=== PATIENT | female | born 1965 | race Caucasian/White ===

== ENCOUNTER 2018-11-03 04:52 | Day surgery (SDC) | payer OTHER ==
[2018-11-02 13:52] VITALS: BMI 31.4
--- NOTE | 2018-11-03 09:03 | HP ---
History & Physical Update - History History: No Change - Physical Physical: No Change - Assessment Assessment: No Change - Plan Plan: No Change
--- NOTE | 2018-11-03 09:05 | OP ---
Operative Note - Note: Operative Date: 11/03/18 Pre-Operative Diagnosis: KRISTIN Operation: suburethral sling Findings: phimosis Post-Operative Diagnosis: Same as Pre-op Surgeon: Jhon Mendoza Anesthesia: General, Local Drains & Tubes with Location: [address] Operative Report Dictated: Yes
[2018-11-03] MEDS ORDERED: VASOPRESSIN 20 UNITS/ML VIAL IV ONE (09:24)
[2018-11-03] MEDS ORDERED: PROPOFOL 20 ML ONE ×3 (09:48)
[2018-11-03] MEDS ORDERED: ceFAZolin SODIUM 1 GM VIAL ONE (09:48)
[2018-11-03] MEDS ORDERED: KETOROLAC TROMETHAMINE 30 MG/1 ML VIAL ONE (09:48)
[2018-11-03] MEDS ORDERED: DEXAMETHASONE SOD PHOSPHATE 4 MG/1 ML VIAL ONE (09:48)
[2018-11-03] MEDS ORDERED: MIDAZOLAM HCL 2 MG/2 ML SINGLE DOSE VIAL ONE (09:49)
[2018-11-03] MEDS ORDERED: LIDOCAINE 1%-EPI 1:100,000 30 ML MDV IJ ONE (09:53)
[2018-11-03] MEDS ORDERED: ceFAZolin SODIUM 1 GM VIAL IVPB ONE (10:11)
[2018-11-03] MEDS ORDERED: BACITRACIN 50,000 UNITS VIAL TP ONE (10:12)
[2018-11-03] MEDS ORDERED: LIDOCAINE 1%/EPI 1:100000 (50 ML MULTI DOSE VIAL) NR ONE (10:12)
[2018-11-03] MEDS ORDERED: ONDANSETRON 4 MG/2 ML VIAL IVPUSH PRN (10:53)
[2018-11-03] MEDS ORDERED: PROMETHAZINE HCL 25 MG/1 ML VIAL IVPUSH PRN (10:53)
[2018-11-03] MEDS ORDERED: oxyCODONE HCL 5 MG TABLET PO PRN (10:53)
--- NOTE | 2018-11-03 12:18 | OP ---
DATE OF OPERATION: 11/03/2018 PREOPERATIVE DIAGNOSIS: Stress urinary incontinence. POSTOPERATIVE DIAGNOSIS: Stress urinary incontinence. PROCEDURE: Suburethral sling. SURGEON: Jhon Mera MD BOMB TECHNICIAN: None. ANESTHESIA: General. ANESTHESIOLOGIST: Isidro Rae MD SPECIMENS: None. CULTURES: None. DRAINS: 16-Bulgarian Ramirez catheter. ESTIMATED BLOOD LOSS: Negligible. COMPLICATIONS: None. DESCRIPTION OF PROCEDURE: The patient was brought into the operating room. Placed on the operating room table in supine position. After administration of general sedation via laryngeal mask, intravenous antibiotics were administered. Sequential compression devices were placed. Patient was placed in the dorsal lithotomy position. The vagina, perineum, lower abdomen, and thighs were prepped and draped in the usual sterile manner. An-Bulgarian 18 Ramirez catheter was placed per urethra, and 10 mL was placed in the balloon. The bladder was emptied. Weighted speculum was placed within the vagina. The anterior vaginal wall was infiltrated with 10 mL of lidocaine with epinephrine 1:200,000. Anterior vaginal wall midline incision was made for a distance of 2 cm overlying the midurethra while palpating the Ramirez catheter balloon at the bladder neck. The flaps were raised on each side at the level of the pubocervical fascia to the level of the descending ramus of the pubic bone on each side without breaking through the endopelvic fascia. Using a helical needle, the Altis sling was now placed through the left obturator foramen 1st and then using the other helical needle was placed through the right obturator foramen. Using the tensioning suture, the sling was tensioned allowing a right-angle clamp between the sling and the urethra. After appropriate tension was achieved, this tensioning suture was cut. The wound was irrigated with antibiotic solution. Hemostasis was assured. The wound was closed with a running 3-0 Vicryl suture. Vagina was packed with bacitracin, Betadine-soaked Kerlix. Ramirez catheter drainage was clear at the end of the procedure. She tolerated the procedure well. Transferred to recovery in stable condition. JHON MERA M.D. JOSÉ MIGUEL/[id number]
[2018-11-03] MEDS ORDERED: IBUPROFEN 600 MG TABLET (FP) PO ONE ×3 (13:30→16:03)
[2018-11-03 13:47] VITALS: BP 128/67; PULSE 59; TEMP 97.6
== END 2018-11-03 14:30 | disposition home or self-care (01) ==
LOC: JASU-SURG 04:52
PROVIDERS: ATTEND Urology
PROC: 0TSD0ZZ Reposition Urethra, Open Approach (ICD-10-PCS; principal; 2018-11-03 09:00)
DX: N39.3 Stress incontinence (female) (male) (principal)
CPT/HCPCS: 57288; C1771; 82962; 84703; 94760

== ENCOUNTER 2019-10-06 11:11 | Emergency (ER) | payer OTHER ==
[2019-10-06 11:30] VITALS: TEMP 98.6; BMI 32.5
[2019-10-06] MEDS ORDERED: SODIUM CHLORIDE 1,000 ML IV STA (11:49)
--- NOTE | 2019-10-06 11:57 | PDOC ---
History of Present Illness - History of Present Illness Initial Comments: Pt is a 54yo F with PMH HTN, DM, HLD, SLE, RA, hx of urethral sling, who presents with difficulty urinating/pelvic pain. Pt states that pain began yesterday with gradual worsening that is intermittent, currently 12/14. States that she has not urinated since at 4am, states that when she has tried to urinate since then, only a small amount comes out. Says that she has not been eating or drinking due to fear of filling her bladder. Reports regular, nonbloody bowel movements (3x Tuesday, 2x today). Reports 1 episode of nausea/vomiting yesterday. Reports a/w headache, weakness, decreased PO intake (for fear of overfilling bladder). Denies f/c, chest pain, shortness of breath. PMH: see HPI PSHx: 2 C sections, sling All: NKDA Social: denies tobacco, etoh, illicit drug use <Saray Flowers - Last Filed: 10/06/19 13:06> <Talita Adler - Last Filed: 10/06/19 15:10> - General Chief Complaint: Urinary Problem Stated Complaint: URINARY PROBLEM Time Seen by Provider: 10/06/19 11:33 Past History - Medical History Anemia: Yes Asthma: No Cancer: No Cardiac Disorders: No CVA: No COPD: No CHF: No Dementia: No Diabetes: Yes GI Disorders: No Disorders: No HTN: Yes Hypercholesterolemia: Yes Liver Disease: No Seizures: No Thyroid Disease: No - Psycho-Social/Smoking History Smoking History: Unknown if ever smoked - Substance Abuse Hx (Audit-C & DAST Scrn) How often the patient has a drink containing alcohol: Never Score: In Men: 4 or > Positive; In Women: 3 or > Positive: 0 Screen Result (Pos requires Nsg. Audit-10AR): Negative In the last yr the pt used illegal drug/Rx for NonMed reason: No Score: Yes response is considered Positive: 0 Screen Result (Positive result requires Nsg. DAST-10): Negative <Saray Flowers - Last Filed: 10/06/19 13:06> <Talita Adler - Last Filed: 10/06/19 15:10> - Medical History Allergies/Adverse Reactions: Allergies Allergy/AdvReac Type Severity Reaction Status Date / Time No Known Drug Allergies Allergy Verified 10/06/19 11:21 Home Medications: Ambulatory Orders Aspirin Coated [Ecotrin -] 81 mg PO DAILY 11/02/18 Hydrochlorothiazide [Hctz -] 25 mg PO DAILY 11/02/18 Hydroxychloroquine Sulfate [Plaquenil] 200 mg PO BID 11/02/18 Metformin HCl [Glucophage] 1,000 mg PO BID 11/02/18 Simvastatin [Zocor -] 20 mg PO HS 11/02/18 Butalb/Acetaminophen/Caffeine [Fioricet Tablet 50-325-40] 1 each PO PRN 10/06/19 Cephalexin Monohydrate [Keflex -] 500 mg PO BID 7 Days #14 capsule 10/06/19 Ferrous Sulfate 325 mg PO DAILY 10/06/19 Phenazopyridine HCl [Pyridium] 200 mg PO TID #6 tablet 10/06/19 Review of Systems - Review of Systems Comments:: CONSTITUTIONAL:reports weakness, denies fever, chills, diaphoresis, loss of appetite HEENT:denies rhinorrhea, nasal congestion, sore throat, throat swelling, difficulty swallowing, mouth swelling, ear pain, eye pain, visual Changes CARDIOVASCULAR:denies chest pain, syncope, palpitations, irregular heart rate, lightheadedness, peripheral edema RESPIRATORY:denies cough, shortness of breath, dyspnea with exertion, orth opnea, wheezing, hemoptysis GASTROINTESTINAL: denies abdominal pain, abdominal distension, nausea, vomiting, diarrhea, constipation, melena, hematochezia GENITOURINARY:denies dysuria, frequency, urgency, hesitancy, hematuria, flank pain, genital pain MUSCULOSKELETAL:denies myalgia, arthralgia, joint swelling, neck pain, back pain HEMATOLOGIC/IMMUNOLOGIC:denies easy bleeding, easy bruising, lymphadenopathy, frequent infections ENDOCRINE: denies unexplained weight gain, unexplained weight loss, heat intolerance, cold intolerance NEUROLOGIC:denies headache, loss of consciousness, focal weakness or paresthesias, dizziness, unsteady gait, seizure, mental status changes, bladder or bowel incontinence SKIN:denies rash, itching, pallor PSYCHIATRIC:denies anxiety, depression, suicidal or homicidal ideation, hallucinations. <Saray Flowers - Last Filed: 10/06/19 13:06> *Physical Exam - Vital Signs Last Vital Signs Temp Pulse Resp BP Pulse Ox 98.6 F 88 18 148/67 100 10/06/19 11:22 10/06/19 11:22 10/06/19 11:22 10/06/19 11:22 10/06/19 11:22 <LionelSaray - Last Filed: 10/06/19 13:06> - Vital Signs Last Vital Signs Temp Pulse Resp BP Pulse Ox 98.6 F 88 18 148/67 100 10/06/19 11:22 10/06/19 11:22 10/06/19 11:22 10/06/19 11:22 10/06/19 11:22 <VitorTalita - Last Filed: 10/06/19 15:10> ED Treatment Course - LABORATORY CBC & Chemistry Diagram: 10/06/19 12:00 10/06/19 12:00 <Saray Flowers - Last Filed: 10/06/19 13:06> - LABORATORY CBC & Chemistry Diagram: 10/06/19 12:00 10/06/19 12:00 - ADDITIONAL ORDERS Additional order review: Laboratory Results 10/06/19 10/06/19 12:00 12:00 Sodium 136 Potassium 4.1 Chloride 103 Carbon Dioxide 27 Anion Gap 6 L BUN 9.3 Creatinine 0.8 Est GFR (CKD-EPI)AfAm 96.87 Est GFR (CKD-EPI)NonAf 83.58 Random Glucose 222 H Calcium 9.7 Total Bilirubin 1.1 H AST 30 ALT 24 Alkaline Phosphatase 96 Total Protein 8.4 H Albumin 4.0 Urine Color Dk yellow Urine Appearance Cloudy Urine pH 5.5 Ur Specific Reasnor 1.027 Urine Protein 2+ H Urine Glucose (UA) Trace Urine Ketones 2+ H Urine Blood 3+ H Urine Nitrite Negative Urine Bilirubin Negative Urine Urobilinogen 1.0 Ur Leukocyte Esterase Negative Urine WBC (Auto) 13 Urine RBC (Auto) 199 Urine Casts (Auto) 14 U Pathogenic Cast Auto Non seen U Epithel Cells (Auto) >36 Urine Bacteria (Auto) 442 10/06/19 12:00 RBC 5.05 MCV 90.0 MCHC 34.8 RDW 13.3 D MPV 8.0 Neutrophils % 83.9 H D Lymphocytes % 8.4 D Monocytes % 7.3 Eosinophils % 0.1 D Basophils % 0.3 - RADIOLOGY Radiology Studies Ordered: Category Date Time Status ABDOMEN & PELVIS CT WITH CONTR [CT] Stat CT Scan 10/06/19 13:25 Completed - Medications Given in the ED: ED Medications Discontinued Medications Generic Name Dose Route Start Last Admin Trade Name Celio PRN Reason Stop Dose Admin Acetaminophen 975 mg 10/06/19 12:06 10/06/19 12:14 Tylenol - PO 10/06/19 12:07 975 mg ONCE ONE Administration Sodium Chloride 1,000 mls @ 1,000 mls/hr 10/06/19 11:49 10/06/19 12:08 Normal Saline - IV 10/06/19 12:48 1,000 mls/hr ASDIR STA Administration Phenazopyridine HCl 200 mg 10/06/19 12:06 10/06/19 12:14 Pyridium - PO 10/06/19 12:07 200 mg ONCE ONE Administration <Talita Adler - Last Filed: 10/06/19 15:10> Medical Decision Making - Medical Decision Making Pt is a 54yo F with PMH who presents with urinary retention Vital Signs Period Temp Pulse Resp BP Sys/Stephens Pulse Ox Last 24 Hr 98.6 F 88 18 148/67 100 DDx: UTI, kidney stone, adhesions Plan: labs, UA, Bedside bladder scan prevoid: 223; post void 144; mild hydronephrosis of L kidney Labs: leukocytosis, UA: proteinuria, ketonuria, 3+blood; electrolytes WNL, no SUJEY Laboratory Tests 10/06/19 10/06/19 10/06/19 12:00 12:00 12:00 WBC 16.4 H RBC 5.05 Hgb 15.8 H Hct 45.4 H D MCV 90.0 MCH 31.4 D MCHC 34.8 RDW 13.3 D Plt Count 239 D MPV 8.0 Absolute Neuts (auto) 13.8 H Neutrophils % 83.9 H D Lymphocytes % 8.4 D Monocytes % 7.3 Eosinophils % 0.1 D Basophils % 0.3 Nucleated RBC % 1 H Sodium 136 Potassium 4.1 Chloride 103 Carbon Dioxide 27 Anion Gap 6 L BUN 9.3 Creatinine 0.8 Est GFR (CKD-EPI)AfAm 96.87 Est GFR (CKD-EPI)NonAf 83.58 Random Glucose 222 H Calcium 9.7 Total Bilirubin 1.1 H AST 30 ALT 24 Alkaline Phosphatase 96 Total Protein 8.4 H Albumin 4.0 Urine Color Dk yellow Urine Appearance Cloudy Urine pH 5.5 Ur Specific Reasnor 1.027 Urine Protein 2+ H Urine Glucose (UA) Trace Urine Ketones 2+ H Urine Blood 3+ H Urine Nitrite Negative Urine Bilirubin Negative Urine Urobilinogen 1.0 Ur Leukocyte Esterase Negative Urine WBC (Auto) 13 Urine RBC (Auto) 199 Urine Casts (Auto) 14 U Pathogenic Cast Auto Non seen U Epithel Cells (Auto) >36 Urine Bacteria (Auto) 442 10/06/19 12:56 <Saray Flowers - Last Filed: 10/06/19 13:06> Discharge <Saray Flowers - Last Filed: 10/06/19 13:06> - Discharge Information Problems reviewed: Yes - Admission No <VitorTalita - Last Filed: 10/06/19 15:10> - Discharge Information Clinical Impression/Diagnosis: UTI (urinary tract infection), Suprapubic pain, Adnexal cyst Condition: Improved Disposition: HOME - Additional Discharge Information Prescriptions: Cephalexin Monohydrate [Keflex -] 500 mg PO BID 7 Days #14 capsule Phenazopyridine HCl [Pyridium] 200 mg PO TID #6 tablet - Follow up/Referral Referrals: Roxy Gotti [Primary Care Provider] - - Patient Discharge Instructions Patient Printed Discharge Instructions: DI for Urinary Tract Infection (UTI) Additional Instructions: You came into the ER pain in your pelvis. In the ED, you were evaluated with labs, including urinalysis, CT abdomen and pelvis. Your urinalysis indicates that you have a urinary tract infection. Your CT scan results indicate that you have a right adnexal cyst. Please follow up with your OBGYN promptly regarding this finding. You were advised to follow up with your primary care doctor within 1 week. You were advised to follow up with your urologist within 3 days. Call them today to make the soonest appointment. Bring all paperwork given to you today to that appointment. You were advised to follow up with your MEDICATION SPECIALIST regarding the right adnexal cyst. Call them today to make the soonest appointment. Bring all paperwork given to you today to that appointment. You were given a prescription for antibiotics, Keflex, for your urinary tract infection. Take as advised on label. Do not stop early even if you are feeling better. You were prescribed Pyridium, which will help with the burning sensation at your urethra. Come back to the ER immediately with any new or worsening concerns, such as high fevers, severe vomiting, inability to tolerate oral intake, chest pain, shortness of breath, lightheadedness or any other new, worsening or concerning symptoms. Thank you for coming to the [facility] ER. We hope you feel better soon! - Post Discharge Activity Work/Back to School Note: Back to Work
[2019-10-06] MEDS ORDERED: ACETAMINOPHEN 325 MG TABLET (FP) PO ONE (12:06)
[2019-10-06] MEDS ORDERED: PHENAZOPYRIDINE HCL 100 MG TABLET (FP) PO ONE (12:06)
[2019-10-06] MEDS ORDERED: ACETAMINOPHEN 325 MG TABLET (FP) ONE (12:10)
[2019-10-06] MEDS ORDERED: PHENAZOPYRIDINE HCL 100 MG TABLET (FP) ONE (12:11)
[2019-10-06 12:22] LABS: EPI CELLS >36 /uL (0-25.1); HYALINE CASTS 14 /uL (0-3.1); PH,URINE 5.5 (5.0-8.0); URINE APPEARANCE CLOUDY; URINE BACTERIA 442 /uL (0-1359); URINE BILIRUBIN NEGATIVE (NEGATIVE); URINE COLOR DK YELLOW; URINE GLUCOSE (UA) TRACE (NEGATIVE); URINE KETONE 2+ (NEGATIVE); URINE LEUK ESTERASE NEGATIVE (NEGATIVE); URINE NITRITE NEGATIVE (NEGATIVE); URINE PROTEIN 2+ (NEGATIVE); URINE RBC 199 /uL (0-23.9); URINE WBC 13 /uL (0-25.8)
[2019-10-06 12:24] LABS: BASO % 0.3 % (0-2.0); EOS % 0.1 % (0-4.5); HEMATOCRIT 45.4 % (32.4-45.2); HEMOGLOBIN 15.8 GM/dL (10.7-15.3); LYMPH % 8.4 % (8-40); MCH 31.4 pg (25.7-33.7); MCHC 34.8 g/dl (32.0-36.0); MONO % 7.3 % (3.8-10.2); NEUT % 83.9 % (42.8-82.8); PLATELET COUNT 239 K/MM3 (134-434); RBC 5.05 M/mm3 (3.60-5.2); RDW 13.3 % (11.6-15.6); WHITE BLOOD COUNT 16.4 K/mm3 (4.0-10.0)
[2019-10-06 12:55] LABS: BILIRUBIN,TOTAL 1.1 mg/dL (0.2-1); BLOOD UREA NITROGEN 9.3 mg/dL (7-18); CALCIUM 9.7 mg/dL (8.5-10.1); CREATININE 0.8 mg/dL (0.55-1.3); POTASSIUM 4.1 mmol/L (3.5-5.1); TOT PROT 8.4 g/dl (6.4-8.2)
--- NOTE | 2019-10-06 13:14 | PDOC ---
Documentation entered by Ryan Sesay SCRIBE, acting as scribe for Austyn Chan MD. Austyn Chan MD: This documentation has been prepared by the Lázaro zapata Aaron, SCRIBE, under my direction and personally reviewed by me in its entirety. I confirm that the documentation accurately reflects all work, treatment, procedures, and medical decision making performed by me. Attending Attestation - Resident Resident Name: Saray Flowers - ED Attending Attestation I have performed the following: I have examined & evaluated the patient, The case was reviewed & discussed with the resident, I agree w/resident's findings & plan, Exceptions are as noted - HPI HPI: 10/06/19 13:14 54 F with h/o HTN, DM, HLD, SLE, RA, urethral sling, presenting with urinary urgency and suprapubic pain. Pt states that she has had pain since yesterday. It is intermittent. Pt notes that she has not had a full void since but has been dribbling urine constantly. Denies any dysuria. Denies F/C. Denies CP/SOB. - Physicial Exam PE: 10/06/19 13:16 See resident exam - Medical Decision Making 10/06/19 13:16 54 F with urinary urgency and suprapubic pain. Bedside US shows PVR of 140cc, no evidence of urinary retention. - Labs, UA, UCx - CTAP - Pyridium 10/06/19 14:49 UA consistent with UTI CT shows fibroid uterus (pt aware) as well as adnexal cyst. Pt without adnexal tenderness. Pt reassessed - symptoms improved with pyridium Pt to f/u with urology and satellite manager Pt is well appearing, with normal vitals. Clinically stable for DC at this time. I discussed the physical exam findings, ancillary test results and final diagnoses with the patient. I answered all of the patient's questions. The patient was satisfied with the care received and felt comfortable with the discharge plan and treatment plan. The patient agrees to follow up with the primary care physician within 24-72 hours. Discharge - Discharge Information Problems reviewed: Yes Clinical Impression/Diagnosis: UTI (urinary tract infection), Suprapubic pain, Adnexal cyst Condition: Improved Disposition: HOME - Additional Discharge Information Prescriptions: Cephalexin Monohydrate [Keflex -] 500 mg PO BID 7 Days #14 capsule Phenazopyridine HCl [Pyridium] 200 mg PO TID #6 tablet - Follow up/Referral Referrals: Roxy Gotti [Primary Care Provider] - - Patient Discharge Instructions Patient Printed Discharge Instructions: DI for Urinary Tract Infection (UTI) Additional Instructions: You came into the ER pain in your pelvis. In the ED, you were evaluated with labs, including urinalysis, CT abdomen and pelvis. Your urinalysis indicates that you have a urinary tract infection. Your CT scan results indicate that you have a right adnexal cyst. Please follow up with your OBGYN promptly regarding this finding. You were advised to follow up with your primary care doctor within 1 week. You were advised to follow up with your urologist within 3 days. Call them today to make the soonest appointment. Bring all paperwork given to you today to that appointment. You were advised to follow up with your MARKETING CONSULTANT regarding the right adnexal cyst. Call them today to make the soonest appointment. Bring all paperwork given to you today to that appointment. You were given a prescription for antibiotics, Keflex, for your urinary tract infection. Take as advised on label. Do not stop early even if you are feeling better. You were prescribed Pyridium, which will help with the burning sensation at your urethra. Come back to the ER immediately with any new or worsening concerns, such as high fevers, severe vomiting, inability to tolerate oral intake, chest pain, shortness of breath, lightheadedness or any other new, worsening or concerning symptoms. Thank you for coming to the [facility] ER. We hope you feel better soon! - Post Discharge Activity Work/Back to School Note: Back to Work
[2019-10-06] MEDS ORDERED: CEPHALEXIN MONOHYDRATE 500 MG CAPSULE (UD) PO ONE (15:13)
[2019-10-06] MEDS ORDERED: CEPHALEXIN MONOHYDRATE 250 MG CAPSULE (FP) ONE (15:20)
[2019-10-06 15:34] VITALS: BP 146/68; PULSE 70
== END 2019-10-06 15:34 | disposition home or self-care (01) ==
LOC: JER 11:11
PROC: 3E0337Z Introduction of Electrolytic and Water Balance Substance into Peripheral Vein, Percutaneous Approach (ICD-10-PCS; principal; 2019-10-06)
DX: N39.0 Urinary tract infection, site not specified (principal); R10.2 Pelvic and perineal pain; N83.8 Other noninflammatory disorders of ovary, fallopian tube and broad ligament
CPT/HCPCS: 36415; 74177-TC; 80053; 81003; 85025; 87086; 99285-25; Q9967

== ENCOUNTER 2022-02-16 13:42 | Observation (INO) | payer OTHER ==
[2022-02-16 13:55] VITALS: BMI 29.1
[2022-02-16 16:09] LABS: BASO % 0.6 % (0-2.0); EOS % 2.9 % (0-4.5); HEMATOCRIT 45.8 % (32.4-45.2); HEMOGLOBIN 15.9 GM/dL (10.7-15.3); LYMPH % 23.4 % (8-40); MCH 30.5 pg (25.7-33.7); MCHC 34.8 g/dl (32.0-36.0); MEAN CELL VOLUME 87.8 fl (80-96); MEAN PLT VOLUME 7.4 fl (7.5-11.1); NEUT % 65.1 % (42.8-82.8); PLATELET COUNT 380 10^3/uL (134-434); RBC 5.21 M/mm3 (3.60-5.2); RDW 13.5 % (11.6-15.6); WHITE BLOOD COUNT 7.7 K/mm3 (4.0-10.0)
[2022-02-16 16:22] LABS: ALBUMIN 4.1 g/dl (3.4-5.0); BLOOD UREA NITROGEN 25.2 mg/dL (7-18); CALCIUM 10.3 mg/dL (8.5-10.1)
[2022-02-16 16:27] LABS: BILIRUBIN,TOTAL 0.4 mg/dL (0.2-1); TOT PROT 8.1 g/dl (6.4-8.2)
[2022-02-16] MEDS ORDERED: SODIUM CHLORIDE 1,000 ML IV STA (18:20)
[2022-02-16] MEDS ORDERED: ASPIRIN 325 MG ENTERIC COATED TABLET (FP) PO ONE (21:01)
[2022-02-16] MEDS ORDERED: DOCUSATE SODIUM 100 MG CAPSULE (FP) PO PRN (21:02)
[2022-02-16] MEDS ORDERED: ACETAMINOPHEN 1000 MG/100 ML BAG IVPB PRN (21:07)
[2022-02-16] MEDS: HEPARIN NA (PORCINE) 5,000 UNITS/ML 1ML VIAL SQ SCH (22:50)
[2022-02-16] MEDS ORDERED: HEPARIN NA (PORCINE) 5,000 UNITS/ML 1ML VIAL ONE (22:53)
[2022-02-16] MEDS ORDERED: ASPIRIN 325 MG ENTERIC COATED TABLET (FP) ONE (22:53)
[2022-02-16] MEDS: INSULIN SLIDING SCALE (NOVOLOG) 1 VIAL SQ SCH (23:11)
[2022-02-17 00:55] LABS: INR 1.02 (0.83-1.09); PROTHROMBIN TIME (PATIENT) 11.7 SEC (9.7-13.0)
[2022-02-17 00:58] LABS: ACTIVATED PTT 28.9 SECONDS (25.2-36.5)
[2022-02-17 08:06] LABS: BASO % 0.6 % (0-2.0); EOS % 3.7 % (0-4.5); HEMATOCRIT 40.5 % (32.4-45.2); LYMPH % 33.9 % (8-40); MCH 30.5 pg (25.7-33.7); MCHC 34.5 g/dl (32.0-36.0); MEAN CELL VOLUME 88.4 fl (80-96); MEAN PLT VOLUME 7.8 fl (7.5-11.1); MONO % 9.7 % (3.8-10.2); NEUT % 52.1 % (42.8-82.8); PLATELET COUNT 316 10^3/uL (134-434); RBC 4.59 M/mm3 (3.60-5.2); RDW 13.5 % (11.6-15.6); WHITE BLOOD COUNT 6.8 K/mm3 (4.0-10.0)
[2022-02-17 08:17] LABS: CALCIUM 9.1 mg/dL (8.5-10.1)
[2022-02-17 08:18] LABS: BLOOD UREA NITROGEN 20.7 mg/dL (7-18); MAGNESIUM 2.1 mg/dL (1.8-2.4)
[2022-02-17 08:21] LABS: CREATININE 0.5 mg/dL (0.55-1.3); PHOSPHOROUS 3.7 mg/dL (2.5-4.9)
[2022-02-17 09:35] VITALS: RESP 18
[2022-02-17] MEDS ORDERED: HEPARIN NA (PORCINE) 5,000 UNITS/ML 1ML VIAL ONE ×2 (11:36→22:14)
[2022-02-17] MEDS: HEPARIN NA (PORCINE) 5,000 UNITS/ML 1ML VIAL SQ SCH ×3 (11:41→22:26)
[2022-02-17] MEDS ORDERED: INSULIN (NOVOLOG) ASPART 100 UNITS/ML 10ML VIAL ONE (13:19)
[2022-02-17] MEDS: INSULIN SLIDING SCALE (NOVOLOG) 1 VIAL SQ SCH ×4 (13:23→22:26)
[2022-02-17] MEDS ORDERED: ACETAMINOPHEN/CAFFEINE/BUTALBITAL 1 TAB PO PRN (16:45)
[2022-02-17] MEDS ORDERED: ACETAMINOPHEN 325 MG TABLET (FP) PO PRN (21:02)
[2022-02-17] MEDS ORDERED: ATORVASTATIN CA 10 MG TABLET (FP) PO SCH (22:00)
[2022-02-17] MEDS ORDERED: ATORVASTATIN CA 10 MG TABLET (FP) ONE (22:14)
[2022-02-17] MEDS: HYDROXYCHLOROQUINE SO4 200 MG TABLET (FP) PO SCH (23:27)
[2022-02-18] MEDS: HEPARIN NA (PORCINE) 5,000 UNITS/ML 1ML VIAL SQ SCH ×2 (05:53→13:14)
[2022-02-18] MEDS: INSULIN SLIDING SCALE (NOVOLOG) 1 VIAL SQ SCH ×3 (06:00→17:24)
[2022-02-18] MEDS ORDERED: metFORMIN HCL 500 MG TABLET (FP) PO SCH (07:00)
[2022-02-18 08:19] VITALS: BP 131/66; PULSE 65; TEMP 98.8
[2022-02-18] MEDS ORDERED: REGADENOSON 0.4 MG/5 ML PRE-FILLED SYRINGE IVPUSH ONE ×2 (09:05→09:30)
[2022-02-18] MEDS ORDERED: OXYBUTYNIN CHLORIDE 5 MG TABLET PO SCH (10:00)
[2022-02-18] MEDS ORDERED: ASPIRIN COATED 81 MG TABLET.EC PO SCH (10:00)
[2022-02-18] MEDS ORDERED: HYDROCHLOROTHIAZIDE 25 MG TABLET (FP) PO SCH (10:00)
[2022-02-18] MEDS ORDERED: FERROUS SO4 325 MG TABLET (FP) PO SCH (10:00)
[2022-02-18] MEDS: HYDROXYCHLOROQUINE SO4 200 MG TABLET (FP) PO SCH (15:37)
== END 2022-02-18 18:28 | disposition home or self-care (01) ==
LOC: JER 13:42 → JERBED 21:01 → J4S 02-17 23:19
PROVIDERS: ADMIT Internal Medicine; ATTEND Nurse Practitioner Family
PROC: 3E023GC Introduction of Other Therapeutic Substance into Muscle, Percutaneous Approach (ICD-10-PCS; principal; 2022-02-16)
PROC: 3E013VG Introduction of Insulin into Subcutaneous Tissue, Percutaneous Approach (ICD-10-PCS; 2022-02-16)
PROC: 3E033GC Introduction of Other Therapeutic Substance into Peripheral Vein, Percutaneous Approach (ICD-10-PCS; 2022-02-16)
PROC: 3E0337Z Introduction of Electrolytic and Water Balance Substance into Peripheral Vein, Percutaneous Approach (ICD-10-PCS; 2022-02-16)
DX: R07.9 Chest pain, unspecified (principal); G45.9 Transient cerebral ischemic attack, unspecified; M32.9 Systemic lupus erythematosus, unspecified; E78.5 Hyperlipidemia, unspecified; E11.9 Type 2 diabetes mellitus without complications; D64.9 Anemia, unspecified; M06.9 Rheumatoid arthritis, unspecified; I10 Essential (primary) hypertension; R06.00 Dyspnea, unspecified
CPT/HCPCS: 0241U-QW; 36415; 70450-TC; 71045-TC-FY; 71275-TC; 78452-TC; 80048; 80053; 82962; 83735; 84100; 84484; 85025; 85610; 85730; 93005; 93010; 93017; 93306-TC; 96361; 96372; 96374; 99285-25; A9502; G0378; J1644; J2785; Q9967